=== PATIENT | female | born 1965 | race Caucasian/White ===

== ENCOUNTER 2023-05-03 19:48 | Inpatient (IN) ==
[2023-05-03] MEDS ORDERED: NS 0.9% 1000 ml BAG 1,000 ML IV ONE ×2 (19:53→20:57)
[2023-05-03 20:26] LABS: ABS Lymphocytes 1.9 10^3/uL (1.0-4.8); ABS Monocytes 0.8 10^3/uL (0.0-0.9); ABS Neutrophils 7.3 10^3/uL (1.5-7.6); ABS Nucleated RBC 0.05 10^3/ul; Eosinophil % 0.1 %; Hematocrit 35.2 % (35-45); Hemoglobin 11.8 g/dL (11.5-14.3); Lymphocyte % 19.1 %; Mean Corpuscular Hemoglobin 32.5 pg (27-33); Mean Corpuscular Hgb Conc 33.6 g/dL (31-36); Mean Corpuscular Volume 96.5 fL (80-97); Mean Platelet Volume 8.7 fL (7.5-11.2); Nucleated Red Blood Cells % 0.5 /100 WBC (0.0-0.4); Platelet Count 261 10^3/uL (150-450); Red Blood Count 3.64 10^6/uL (3.63-4.92); Red Cell Distribution Width 24.1 % (12-17)
[2023-05-03 20:41] LABS: Albumin 2.5 g/dL (3.2-5.2); Albumin/Globulin Ratio 0.8 (1-3); Calcium 8.2 mg/dL (8.6-10.3); Creatinine, Serum 1.22 mg/dL (0.51-0.95); Globulin 3.3 g/dL (2-4); Potassium 3.6 mmol/L (3.5-5.0); Total Bilirubin 8.8 mg/dL (0.2-1.0); Total Protein 5.8 g/dL (6.4-8.9); eGFR CKD-EPI 51.4 (>60)
[2023-05-03 22:06] LABS: Direct Bilirubin 4.4 mg/dL (0.03-0.18); Indirect Bilirubin 4.4 mg/dL (0.3-1.0)
[2023-05-03] MEDS ORDERED: Iodixanol (CONTRAST) 320 MG/ML 100 ML SDV IV ONE (22:21)
[2023-05-04] MEDS ORDERED: Lactated Ringers 1000 ml BAG 1,000 ML IV ONE (01:28)
[2023-05-04] MEDS ORDERED: Albumin Human 25% 25 GM/100 ML BTL IV ONE (01:49)
[2023-05-04 02:26] LABS: Direct Bilirubin 4.2 mg/dL (0.03-0.18); Indirect Bilirubin 3.8 mg/dL (0.3-1.0)
[2023-05-04 03:11] LABS: Urine Appearance Cloudy; Urine Bilirubin 1+ (Negative); Urine Blood Negative (Negative); Urine Color Amber; Urine Glucose Negative (Negative); Urine Ketones Negative (Negative); Urine Nitrite Negative (Negative); Urine Protein Negative (Negative); Urine Specific Gravity 1.047 (1.002-1.030); Urine Urobilinogen Positive (Negative)
[2023-05-04] MEDS: Enoxaparin 80 MG/0.8 ML SYR SUBCUT SCH ×2 (04:52→17:48)
[2023-05-04 06:05] LABS: INR 2.93 (0.88-1.18)
[2023-05-04] MEDS: Lactulose 30 ml UDC PO SCH ×4 (08:24→22:52)
[2023-05-04] MEDS: Ondansetron 4 mg VIAL 2 MG/ML 2 ml VIAL IV PRN ×2 (11:42→21:35)
[2023-05-04] MEDS ORDERED: Prochlorperazine 5 mg/ml 2 ml VIAL (10 mg) IV PRN (14:21)
[2023-05-04] MEDS: Lactated Ringers 1000 ml BAG 1,000 ML IV SCH (15:18)
[2023-05-04 17:41] LABS: Albumin 2.4 g/dL (3.2-5.2); Albumin/Globulin Ratio 0.9 (1-3); Calcium 7.9 mg/dL (8.6-10.3); Creatinine, Serum 1.01 mg/dL (0.51-0.95); Globulin 2.6 g/dL (2-4); Potassium 3.5 mmol/L (3.5-5.0); Total Bilirubin 8.5 mg/dL (0.2-1.0); eGFR CKD-EPI 64.5 (>60)
[2023-05-04 17:42] LABS: INR 2.93 (0.88-1.18)
[2023-05-04] MEDS ORDERED: Benzocaine (plain) Lozenge 15 MG PO PRN (22:16)
[2023-05-04] MEDS: Nystatin SUSPENSION 100,000 UNITS/ML UDC PO SCH (22:36)
[2023-05-04] MEDS: oxyCODONE 5 mg/5 ml ORAL.SOLN UDC PO PRN (23:35)
[2023-05-05] MEDS: Lactated Ringers 1000 ml BAG 1,000 ML IV SCH ×3 (01:40→23:20)
[2023-05-05] MEDS: Enoxaparin 80 MG/0.8 ML SYR SUBCUT SCH (05:53)
[2023-05-05 07:01] LABS: Hematocrit 30.9 % (35-45); Hemoglobin 10.6 g/dL (11.5-14.3); Mean Corpuscular Hemoglobin 33.2 pg (27-33); Mean Corpuscular Hgb Conc 34.5 g/dL (31-36); Mean Corpuscular Volume 96.2 fL (80-97); Mean Platelet Volume 8.2 fL (7.5-11.2); Platelet Count 156 10^3/uL (150-450); Red Blood Count 3.21 10^6/uL (3.63-4.92); Red Cell Distribution Width 23.4 % (12-17); White Blood Count 9.9 10^3/uL (3.8-11.8)
[2023-05-05 07:02] LABS: Albumin 2.2 g/dL (3.2-5.2); Albumin/Globulin Ratio 0.9 (1-3); Calcium 7.7 mg/dL (8.6-10.3); Creatinine, Serum 0.99 mg/dL (0.51-0.95); Globulin 2.4 g/dL (2-4); Potassium 3.5 mmol/L (3.5-5.0); Total Bilirubin 8.6 mg/dL (0.2-1.0); Total Protein 4.6 g/dL (6.4-8.9); eGFR CKD-EPI 66.1 (>60)
[2023-05-05 09:38] LABS: ABS Monocytes 0.8 10^3/uL (0.0-0.9); Eosinophil % 0.4 %; Lymphocyte % 20.8 %
[2023-05-05] MEDS: oxyCODONE 5 mg/5 ml ORAL.SOLN UDC PO PRN (10:43)
[2023-05-05] MEDS: Lactulose 30 ml UDC PO SCH ×4 (10:46→23:22)
[2023-05-05] MEDS: Nystatin SUSPENSION 100,000 UNITS/ML UDC PO SCH ×4 (10:59→23:29)
[2023-05-05] MEDS ORDERED: Senna TAB 8.6 mg TAB PO PRN (13:30)
[2023-05-05] MEDS ORDERED: Morphine ER 15 mg TAB ** extended release PO SCH (14:00)
[2023-05-05] MEDS ORDERED: Calcium Carb (TUMS) 500 mg CHEW TAB PO PRN (23:12)
[2023-05-05] MEDS: Morphine ER 15 mg TAB ** extended release PO SCH (23:22)
[2023-05-06 05:36] VITALS: BP 102/84
[2023-05-06 06:38] LABS: INR 2.97 (0.88-1.18)
[2023-05-06] MEDS: Morphine ER 15 mg TAB ** extended release PO SCH (08:20)
[2023-05-06] MEDS: Lactulose 30 ml UDC PO SCH (08:21)
[2023-05-06] MEDS: Nystatin SUSPENSION 100,000 UNITS/ML UDC PO SCH ×4 (08:38→21:22)
[2023-05-06] MEDS: Lactated Ringers 1000 ml BAG 1,000 ML IV SCH (10:07)
[2023-05-06] MEDS ORDERED: Morphine ORAL CONCENTRATE 5 MG/0.25 ML ORAL.SYRIN SL PRN ×2 (10:44→13:58)
[2023-05-06] MEDS: Ondansetron 4 mg VIAL 2 MG/ML 2 ml VIAL IV PRN (12:49)
[2023-05-06] MEDS: Morphine ORAL CONCENTRATE 5 MG/0.25 ML ORAL.SYRIN SL SCH ×3 (14:28→22:15)
[2023-05-06] MEDS ORDERED: Scopolamine 1 mg/72hr PATCH TRANSDERM SCH (15:00)
[2023-05-07] MEDS: Morphine ORAL CONCENTRATE 5 MG/0.25 ML ORAL.SYRIN SL SCH ×6 (02:12→20:39)
[2023-05-07] MEDS: Nystatin SUSPENSION 100,000 UNITS/ML UDC PO SCH ×4 (10:09→20:39)
[2023-05-07 14:23] LABS: INR 3.92 (0.88-1.18)
[2023-05-08] MEDS: Atropine 1% (ORAL/SL) 15 ML BTL SL PRN ×2 (00:41→13:28)
[2023-05-08] MEDS: Morphine ORAL CONCENTRATE 5 MG/0.25 ML ORAL.SYRIN SL SCH ×3 (03:12→09:49)
[2023-05-08] MEDS: Nystatin SUSPENSION 100,000 UNITS/ML UDC PO SCH (09:50)
[2023-05-08] MEDS ORDERED: Morphine 4 MG/ML VIAL (1 ml) IV PRN (10:14)
[2023-05-08] MEDS ORDERED: Dextran 70/Hypromellose Tears Eye Drops 15 ml BTL (for Artificials Tears) BOTH EYES PRN (10:15)
[2023-05-08] MEDS ORDERED: Lorazepam PYXIS KEY PRN (10:16)
[2023-05-08] MEDS ORDERED: LORazepam 2 mg VIAL 1 ml IV PUSH PRN ×2 (10:16→10:17)
[2023-05-08] MEDS ORDERED: Morphine 10 MG/ML VIAL (1 ml) IV SCH (14:00)
== END 2023-05-08 16:35 | disposition expired | DRG 279 ==
LOC: ED 19:48 → EDHOLD 05-04 01:49 → SUATTDRO 05-04 01:49 → EDHOLD 05-04 03:46 → MED 05-04 03:57
PROVIDERS: ADMIT Hospitalist; ATTEND Internal Medicine